=== PATIENT | male | born 1980 | race Caucasian/White ===

== ENCOUNTER 2019-10-29 03:05 | Emergency (ER) | payer SELFPAY ==
[~2019-10-29] VITALS: Ht 170.2 cm; Wt 74.8 kg
[2019-10-29 03:05] VITALS: BP 137/86
--- NOTE | 2019-10-29 03:43 | NUR ---
PT IS MEDICALLY STABLE FOR D/C PER MD. pt alert, ox4. ambulatory w/ steady gaits.IV removed. Catheter intact and site benign. Pressure and 4x4 applied to site. No bleeding noted.Patient discharged to home in stable condition. Written and verbal after care instructions given. Patient verbalizes understanding of instruction. pt denied homelessness and reported has a place to stay.
== END 2019-10-29 03:46 | disposition home or self-care (01) ==
LOC: ER 03:05
DX: F15.10 Other stimulant abuse, uncomplicated (principal)

== ENCOUNTER 2020-06-20 21:29 | Emergency (ER) | payer MEDICAID ==
[~2020-06-20] VITALS: Ht 170.2 cm; Wt 74.8 kg
--- NOTE | 2020-06-20 21:39 | NUR ---
LANIE FROM A 10/04. TO ER BED 10. AAOX4. NOT IN RESP DISTRESS, BREATHING EVEN AND UNLABORED. BROUGHT IN FOR WITNESSED SEIZURE. PER REPORT, PT LIED DOWN AND HAD A TONIC CLONIC SEIZURE. PT REPROT HX OF SEIZURE, LAST EPISODE WAS WHEN HE WAS IN [employer]. NOT ON ANY SEIZURE MEDS. PT WAS ALSO NOTED WITH AN ORAL TRAUMA ON HIS R LOWER LIP. SEIZURE PRECAUTION IN PLACE. EMS REPORTS THAT HE WAS GIVEN ZOFRAN 4MG IV FOR VOMMITING IN THE FIELD. WAS AT THE BEDSIDE FOR EVAL.
[2020-06-20 21:56] LABS: BASOPHILS % (AUTO) 0.6 % (0.0-2.0); EOSINOPHILS % (AUTO) 0.9 % (0.0-6.0); HEMATOCRIT 42 % (39-51); HEMOGLOBIN 14.2 g/dL (13.5-17.5); LYMPHOCYTES # (AUTO) 2.6 /CMM (0.8-4.8); LYMPHOCYTES % (AUTO) 42.3 % (20.0-44.0); MEAN CORPUSCULAR HGB CONC 34 g/dl (31.0-36.0); MEAN CORPUSCULAR VOLUME 90 fL (80-96); MONOCYTES # (AUTO) 0.4 /CMM (0.1-1.30); MONOCYTES % (AUTO) 7.1 % (2.0-12.0); NEUTROPHILS % (AUTO) 49.1 % (43.0-81.0); PLATELET COUNT (AUTO) 250 /CMM (150-450); RED BLOOD CELL COUNT(AUTO) 4.65 MIL/uL (4.5-6.0); WHITE BLOOD COUNT (AUTO) 6.1 K/uL (4.3-11.0)
[2020-06-20] MEDS ORDERED: IV NS 0.9% 1,000 ML BAG IV ONE (22:00)
[2020-06-20] MEDS ORDERED: TDAP [DIPH/PERTUSSIS/TET] 0.5 ML VIAL IM ONE ×2 (22:00→22:01)
[2020-06-20] MEDS ORDERED: LEVETIRACETAM (500MG) 500 MG in IV NS 0.9% 100 ML IV SCH (22:00)
[2020-06-20] MEDS ORDERED: LEVETIRACETAM (500MG) 500 MG/5 ML VIAL IV ONE (22:01)
--- NOTE | 2020-06-20 22:02 | NUR ---
PT TO CT ON [facility]ER[facility]
[2020-06-20 22:13] LABS: ALANINE AMINOTRANSFERASE 37 U/L (12-78); ALBUMIN 3.3 g/dL (3.4-5.0); ALCOHOL, BLOOD < 3 mg/dL (0-0); ALKALINE PHOSPHATASE 62 U/L (46-116); ASPARTATE AMINOTRANSFERASE 29 U/L (15-37); BILIRUBIN,DIRECT 0.1 mg/dL (0.0-0.2); BILIRUBIN,TOTAL 0.4 mg/dL (0.2-1.0); CALCIUM, SERUM 7.9 mg/dL (8.5-10.1); CARBON DIOXIDE 22 mmol/L (21-32); CHLORIDE 106 mmol/L (98-107); CREATININE 1.3 mg/dL (0.6-1.3); GLUCOSE 156 mg/dL (74-106); POTASSIUM 3.6 mmol/L (3.5-5.1); SODIUM SERUM 141 mmol/L (136-145); TOTAL PROTEIN, SERUM 6.2 g/dL (6.4-8.2); UREA NITROGEN, BLOOD 14 mg/dL (7-18)
--- NOTE | 2020-06-20 22:16 | NUR ---
EMT AT BEDSIDE FOR EKG
[2020-06-20 22:43] LABS: BILIRUBIN,URINE SMALL (NEGATIVE); COLOR,URINE YELLOW (YELLOW); LEUKOCYTE ESTERASE ,URINE NEGATIVE (NEGATIVE); NITRITE, URINE NEGATIVE (NEGATIVE); PH,URINE 5.5 (5.0-8.0); PROTEIN,URINE TRACE mg/dl (NEGATIVE); UGLUCOSE NEGATIVE (NEGATIVE); UROBILINOGEN,URINE 0.2 EU/dL (0.2)
[2020-06-20 22:59] LABS: BACTERIA,URINE Few /HPF (None Seen); RBC,URINE 21-50 /HPF (0-2); SQUAMOUS EPITHELIAL CELL,UR Few /HPF (None Seen); WBC,URINE 0-2 /HPF (0-3)
[2020-06-20 23:00] LABS: MUCUS,URINE Many /LPF (None Seen)
--- NOTE | 2020-06-21 01:38 | NUR ---
PATIENT CALLED SISTER TO COME PICK HIM UP. ETA IS UNKNOWN
--- NOTE | 2020-06-21 05:56 | NUR ---
IV removed. Catheter intact and site benign. Pressure and 4x4 applied to site. No bleeding noted.
--- NOTE | 2020-06-21 05:56 | NUR ---
Patient picked up by sister.
[2020-06-21 05:57] VITALS: BP 107/54
== END 2020-06-21 06:00 | disposition home or self-care (01) ==
LOC: ER 21:31
DX: G40.909 Epilepsy, unspecified, not intractable, without status epilepticus (principal); F19.10 Other psychoactive substance abuse, uncomplicated; R94.31 Abnormal electrocardiogram [ECG] [EKG]
CPT/HCPCS: 36415; 70450; 80048; 80076; 80307; 80320; 81001; 83735; 85025; 90471; 90715; 93005; 96365; 99285; J1953 ×2; J7030 ×3; G0480